=== PATIENT | female | born 1960 | race Caucasian/White ===

== ENCOUNTER 2019-07-23 08:43 | Observation (INO) | payer BC ==
[~2019-07-23] VITALS: Ht 152.4 cm; Wt 49.9 kg
[2019-07-23 03:15] VITALS: BP 109/54
[~2019-07-23 08:43] MED LIST: CELE100C PO; FLUO20CA16 PO; PANT40TA77 PO; ROPI1TAB PO
[2019-07-23] MEDS ORDERED: GLUCAGON,HUMAN RECOMBINANT 1 MG/ML VIAL. IV ONE (09:15)
[2019-07-23] MEDS ORDERED: ONDANSETRON PF 4 MG/2 ML VIAL. IV ONE (09:15)
[2019-07-23 09:42] LABS: BASO % 1 % (0-3); EOS # 0.2 x10^3/uL (0.0-0.7); EOS % 3 % (0-3); HEMATOCRIT 40.4 % (36.0-47.0); HEMOGLOBIN 13.9 g/dL (12.0-15.5); LYMPH # 1.5 x10^3/uL (1.0-4.8); LYMPH % 25 % (24-48); MEAN CORPUSCULAR HEMOGLOBIN 32 pg (25-35); MEAN CORPUSCULAR HGB CONC 35 g/dL (31-37); MEAN CORPUSCULAR VOLUME 93 fL (79-100); MONO # 0.6 x10^3/uL (0.0-1.1); MONO % 9 % (0-9); NEUT # 3.8 x10^3/uL (1.8-7.7); NEUT % 62 % (31-73); PLATELET COUNT 338 x10^3/uL (140-400); RED BLOOD COUNT 4.36 x10^6/uL (3.50-5.40); RED CELL DISTRIBUTION WIDTH 14.1 % (11.5-14.5); WHITE BLOOD COUNT 6.2 x10^3/uL (4.0-11.0)
[2019-07-23 09:48] LABS: CALCIUM 9.9 mg/dL (8.5-10.1); CREATININE 0.9 mg/dL (0.6-1.0); GFR 64.3
[2019-07-23 09:51] LABS: ALBUMIN 4.4 g/dL (3.4-5.0); ALBUMIN/GLOBULIN RATIO 1.3 (1.0-1.7); TOTAL BILIRUBIN 0.7 mg/dL (0.2-1.0); TOTAL PROTEIN 7.8 g/dL (6.4-8.2)
--- NOTE | 2019-07-23 11:37 | PDOC2 ---
GI CONSULT Reason For Consult: possible food bolus HPI: HPI: 58 y/o female - d/w ER physician and asked to see in ER. In usual state of health until yesterday at 5:00 p.m. when a piece of pot roast got stuck in her throat. Eventually coughed up some pieces of pot roast but still unable to take any PO. Says she "feels the stricture" in upper throat and midchest/epigastrium. Given glucagon and Ativan in ER and able to hold water down for 20 min but feels nauseated and feels water "sitting" in epigastrium. H/o food bolus and esophageal stricture - had EGD w/ Dr. Guidry in 2016. Cannot view procedure report but pathology report indicates esophageal stricture (biopsy c/w reflux) and antral ulcer (negative for H. pylori). No dysphagia problems since that time. Occasional heartburn - takes Zantac once weekly. No hematemesis. No abd pain, diarrhea, constipation, hematochezia, melena, or weight loss. No GB, liver, or pancreas history. Had a colonoscopy several years ago that was reportedly normal. Takes Naproxen PRN. PMH: PMH: RLS, arthritis , wrist surgery, neck surgery FH: Family History: Cancer (father - liver) Social History: Smoke: No ALCOHOL: none Drugs: None ROS: GEN: Denies fevers, chills, sweats HEENT: Denies blurred vision, sore throat CV: Denies chest pain RESP: Denies shortness of air, cough GI: Per HPI : Denies hematuria, dysuria ENDO: Denies weight changes NEURO: Denies confusion, dizziness MSK: Denies weakness, joint pain/swelling SKIN: Denies jaundice, pruritus Vitals: Vitals: Vital Signs Date Time Temp Pulse Resp B/P (MAP) Pulse Ox O2 Delivery O2 Flow Rate FiO2 07/23/19 10:25 59 16 116/62 (80) 96 Room Air 07/23/19 09:04 98.1 98.1 Labs: Labs: Laboratory Tests Test 07/23/19 09:24 White Blood Count 6.2 x10^3/uL (4.0-11.0) Red Blood Count 4.36 x10^6/uL (3.50-5.40) Hemoglobin 13.9 g/dL (12.0-15.5) Hematocrit 40.4 % (36.0-47.0) Mean Corpuscular Volume 93 fL (79-100) Mean Corpuscular Hemoglobin 32 pg (25-35) Mean Corpuscular Hemoglobin Concent 35 g/dL (31-37) Red Cell Distribution Width 14.1 % (11.5-14.5) Platelet Count 338 x10^3/uL (140-400) Neutrophils (%) (Auto) 62 % (31-73) Lymphocytes (%) (Auto) 25 % (24-48) Monocytes (%) (Auto) 9 % (0-9) Eosinophils (%) (Auto) 3 % (0-3) Basophils (%) (Auto) 1 % (0-3) Neutrophils # (Auto) 3.8 x10^3/uL (1.8-7.7) Lymphocytes # (Auto) 1.5 x10^3/uL (1.0-4.8) Monocytes # (Auto) 0.6 x10^3/uL (0.0-1.1) Eosinophils # (Auto) 0.2 x10^3/uL (0.0-0.7) Basophils # (Auto) 0.0 x10^3/uL (0.0-0.2) Sodium Level 143 mmol/L (136-145) Potassium Level 4.0 mmol/L (3.5-5.1) Chloride Level 105 mmol/L (98-107) Carbon Dioxide Level 30 mmol/L (21-32) Anion Gap 8 (6-14) Blood Urea Nitrogen 23 mg/dL (7-20) Creatinine 0.9 mg/dL (0.6-1.0) Estimated GFR (Cockcroft-Gault) 64.3 BUN/Creatinine Ratio 26 (6-20) Glucose Level 89 mg/dL (70-99) Calcium Level 9.9 mg/dL (8.5-10.1) Total Bilirubin 0.7 mg/dL (0.2-1.0) Aspartate Amino Transf (AST/SGOT) 23 U/L (15-37) Alanine Aminotransferase (ALT/SGPT) 20 U/L (14-59) Alkaline Phosphatase 133 U/L (46-116) Total Protein 7.8 g/dL (6.4-8.2) Albumin 4.4 g/dL (3.4-5.0) Albumin/Globulin Ratio 1.3 (1.0-1.7) Allergies: Coded Allergies: No Known Drug Allergies (Unverified , 12/30/15) Medications: Current Medications Medications (Trade) Dose Ordered Sig/Asya Route PRN Reason Start Time Stop Time Status Last Admin Dose Admin Ondansetron HCl (Zofran) 4 mg 1X ONCE IV 07/23/19 09:15 07/23/19 09:16 DC 07/23/19 09:33 Lorazepam (Ativan Inj) 0.5 mg 1X ONCE IV 07/23/19 09:15 07/23/19 09:16 DC 07/23/19 09:33 Glucagon (Glucagen) 1 mg 1X ONCE IV 07/23/19 09:15 07/23/19 09:16 DC 07/23/19 09:33 PE: GEN: NAD - emesis basin and Ziploc baggie w/ saliva HEENT: Atraumatic, PERRL LUNGS: CTAB HEART: RRR ABD: NABS, S/ND/NT EXTREMITY: No edema SKIN: No rashes, no jaundice NEURO/PSYCH: A & O �3 A/P: A/P: Possible food impaction H/o GERD, esophageal stricture, gastric ulcer CRC screen - UTD NSAID use -- D/w ER physician and Dr. Swanson - plan for EGD this afternoon. Would probably benefit from daily PPI. ESTER PACHECO Jul 23, 2019 11:37
[2019-07-23] MEDS ORDERED: PANTOPRAZOLE IV PUSH 40 MG VIAL. IVP ONE (11:45)
[2019-07-23] MEDS ORDERED: IV NORMAL SALINE 1000ML BAG 1,000 ML IV SCH (12:03)
[2019-07-23] MEDS ORDERED: ONDANSETRON PF 4 MG/2 ML VIAL. IV PRN ×2 (12:15→13:15)
--- NOTE | 2019-07-23 14:04 | PDOC1 ---
History and Physical Date of Admission Date of Admission DATE: 07/23/19 TIME: 14:01 Identification/Chief Complaint Chief Complaint food impaction Source Source: Caregiver, Chart review, Patient History of Present Illness History of Present Illness 58-year-old white female, food impaction with pot roast few days ago, worse today hence came to the ER. Planned for EGD with removal of the food by GI later this afternoon. Has been nothing by mouth, bucket at bedside. Previous episodes in the past Dr. Krista Guidry GI. Please refer to GI note for full details Fairly comfortable at ER, seen there, consents to procedure Past Medical History Cardiovascular: No pertinent hx Pulmonary: No pertinent hx CENTRAL NERVOUS SYSTEM: Other GI: GERD, Other (food impaction in past) Heme/Onc: No pertinent hx Hepatobiliary: No pertinent hx Psych: No pertinent hx, Addictions Rheumatologic: No pertinent hx Infectious disease: No pertinent hx Renal/: No pertinent hx Endocrine: No pertinent hx Past Surgical History Past Surgical History: , Other Family History Family History: No Significant, Other Social History Smoke: No ALCOHOL: none Drugs: None Current Medications Current Medications Current Medications Ondansetron HCl (Zofran) 4 mg 1X ONCE IV Last administered on 07/23/19at 09:33; Start 07/23/19 at 09:15; Stop 07/23/19 at 09:16; Status DC Lorazepam (Ativan Inj) 0.5 mg 1X ONCE IV Last administered on 07/23/19at 09:33; Start 07/23/19 at 09:15; Stop 07/23/19 at 09:16; Status DC Glucagon (Glucagen) 1 mg 1X ONCE IV Last administered on 07/23/19at 09:33; Start 07/23/19 at 09:15; Stop 07/23/19 at 09:16; Status DC Pantoprazole Sodium (PROTONIX VIAL for IV PUSH) 40 mg 1X ONCE IVP Last administered on 07/23/19at 12:30; Start 07/23/19 at 11:45; Stop 07/23/19 at 11:47; Status DC Ondansetron HCl (Zofran) 4 mg PRN Q8HRS PRN IV NAUSEA/VOMITING; Start 07/23/19 at 12:15; Stop 07/23/19 at 13:12; Status DC Sodium Chloride 1,000 ml @ 100 mls/hr Q10H IV Last administered on 07/23/19at 12 :30; Start 07/23/19 at 12:03; Stop 07/24/19 at 12:02 Ondansetron HCl (Zofran) 4 mg PRN Q6HRS PRN IV NAUSEA/VOMITING; Start 07/23/19 at 13:15 Active Scripts Active Pantoprazole Sodium 40 Mg Tablet. 1 Tab PO DAILY Reported Requip (Ropinirole Hcl) 1 Mg Tablet 0.5 Tab PO QHS Allergies Allergies: Coded Allergies: No Known Drug Allergies (Unverified , 12/30/15) ROS Review of System As per history of present illness, the rest of ROS 14 point negative Physical Exam General: Alert, Oriented X3, Cooperative, No acute distress HEENT: Atraumatic, PERRLA, EOMI Lungs: Clear to auscultation, Normal air movement Heart: S1S2, RRR, no thrills, no rubs, no gallops, no murmurs, no jug vein distention Cardiovascular: S1, S2 Breasts: Normal, Rt breast nml w/o mass, Lt breast nml w/o mass, Nipples normal Abdomen: Normal bowel sounds, Soft, No tenderness, No hepatosplenomegaly, No masses PELVIC: Nml ext genitalia Extremities: No clubbing, No cyanosis, No edema, Normal pulses, No tenderness/swelling Skin: No rashes, No breakdown, No significant lesion Neuro: Normal gait, Normal speech, Strength at 5/5 X4 ext, Normal tone, Sensation intact, Cranial nerves 3-12 NL, Reflexes 2+ Psych/Mental Status: Mental status NL, Mood NL Vitals Vitals Vital Signs Date Time Temp Pulse Resp B/P (MAP) Pulse Ox O2 Delivery O2 Flow Rate FiO2 07/23/19 12:55 55 16 131/63 (85) 97 Room Air 07/23/19 09:04 98.1 98.1 Labs Labs Laboratory Tests Test 07/23/19 09:24 White Blood Count 6.2 x10^3/uL (4.0-11.0) Red Blood Count 4.36 x10^6/uL (3.50-5.40) Hemoglobin 13.9 g/dL (12.0-15.5) Hematocrit 40.4 % (36.0-47.0) Mean Corpuscular Volume 93 fL (79-100) Mean Corpuscular Hemoglobin 32 pg (25-35) Mean Corpuscular Hemoglobin Concent 35 g/dL (31-37) Red Cell Distribution Width 14.1 % (11.5-14.5) Platelet Count 338 x10^3/uL (140-400) Neutrophils (%) (Auto) 62 % (31-73) Lymphocytes (%) (Auto) 25 % (24-48) Monocytes (%) (Auto) 9 % (0-9) Eosinophils (%) (Auto) 3 % (0-3) Basophils (%) (Auto) 1 % (0-3) Neutrophils # (Auto) 3.8 x10^3/uL (1.8-7.7) Lymphocytes # (Auto) 1.5 x10^3/uL (1.0-4.8) Monocytes # (Auto) 0.6 x10^3/uL (0.0-1.1) Eosinophils # (Auto) 0.2 x10^3/uL (0.0-0.7) Basophils # (Auto) 0.0 x10^3/uL (0.0-0.2) Sodium Level 143 mmol/L (136-145) Potassium Level 4.0 mmol/L (3.5-5.1) Chloride Level 105 mmol/L (98-107) Carbon Dioxide Level 30 mmol/L (21-32) Anion Gap 8 (6-14) Blood Urea Nitrogen 23 mg/dL (7-20) Creatinine 0.9 mg/dL (0.6-1.0) Estimated GFR (Cockcroft-Gault) 64.3 BUN/Creatinine Ratio 26 (6-20) Glucose Level 89 mg/dL (70-99) Calcium Level 9.9 mg/dL (8.5-10.1) Total Bilirubin 0.7 mg/dL (0.2-1.0) Aspartate Amino Transf (AST/SGOT) 23 U/L (15-37) Alanine Aminotransferase (ALT/SGPT) 20 U/L (14-59) Alkaline Phosphatase 133 U/L (46-116) Total Protein 7.8 g/dL (6.4-8.2) Albumin 4.4 g/dL (3.4-5.0) Albumin/Globulin Ratio 1.3 (1.0-1.7) Laboratory Tests Test 07/23/19 09:24 White Blood Count 6.2 x10^3/uL (4.0-11.0) Red Blood Count 4.36 x10^6/uL (3.50-5.40) Hemoglobin 13.9 g/dL (12.0-15.5) Hematocrit 40.4 % (36.0-47.0) Mean Corpuscular Volume 93 fL (79-100) Mean Corpuscular Hemoglobin 32 pg (25-35) Mean Corpuscular Hemoglobin Concent 35 g/dL (31-37) Red Cell Distribution Width 14.1 % (11.5-14.5) Platelet Count 338 x10^3/uL (140-400) Neutrophils (%) (Auto) 62 % (31-73) Lymphocytes (%) (Auto) 25 % (24-48) Monocytes (%) (Auto) 9 % (0-9) Eosinophils (%) (Auto) 3 % (0-3) Basophils (%) (Auto) 1 % (0-3) Neutrophils # (Auto) 3.8 x10^3/uL (1.8-7.7) Lymphocytes # (Auto) 1.5 x10^3/uL (1.0-4.8) Monocytes # (Auto) 0.6 x10^3/uL (0.0-1.1) Eosinophils # (Auto) 0.2 x10^3/uL (0.0-0.7) Basophils # (Auto) 0.0 x10^3/uL (0.0-0.2) Sodium Level 143 mmol/L (136-145) Potassium Level 4.0 mmol/L (3.5-5.1) Chloride Level 105 mmol/L (98-107) Carbon Dioxide Level 30 mmol/L (21-32) Anion Gap 8 (6-14) Blood Urea Nitrogen 23 mg/dL (7-20) Creatinine 0.9 mg/dL (0.6-1.0) Estimated GFR (Cockcroft-Gault) 64.3 BUN/Creatinine Ratio 26 (6-20) Glucose Level 89 mg/dL (70-99) Calcium Level 9.9 mg/dL (8.5-10.1) Total Bilirubin 0.7 mg/dL (0.2-1.0) Aspartate Amino Transf (AST/SGOT) 23 U/L (15-37) Alanine Aminotransferase (ALT/SGPT) 20 U/L (14-59) Alkaline Phosphatase 133 U/L (46-116) Total Protein 7.8 g/dL (6.4-8.2) Albumin 4.4 g/dL (3.4-5.0) Albumin/Globulin Ratio 1.3 (1.0-1.7) VTE Prophylaxis Ordered VTE Prophylaxis Devices: Yes VTE Pharmacological Prophylaxi: Yes Assessment/Plan Assessment/Plan Food impaction, pot roast OA, GERD-chronic stable Plan nothing by mouth, EGD later with removal of impacted food GABY TIM MD Jul 23, 2019 14:04
--- NOTE | 2019-07-23 14:25 | PHYS DOC ---
Past Medical History Past Medical History: Arthritis, Other Past Surgical History: , Tubal ligation Additional Past Surgical Histo: NECK FUSION 2008 Alcohol Use: Occasionally Drug Use: None Adult General Chief Complaint Chief Complaint: DIFFICULTY SWALLOWING HPI HPI Patient is a 58 year old female presents with nausea and vomiting and sensation of food being stuck in her esophagus. She has a history of an esophageal stricture back in 2016 she had pot roast last night she ate a piece she tried to she thinks she got most of it back up it since then she has had significant chest pressure every time she drinks some water and then the walker will come right back up. This is been going on for 12-18 hours. No abdominal pain Review of Systems Review of Systems Constitutional: Denies fever or chills [] Eyes: Denies change in visual acuity, redness, or eye pain [] HENT: Denies nasal congestion or sore throat [] Respiratory: Denies cough or shortness of breath [] Integument: Denies rash or skin lesions [] Neurologic: Denies headache, focal weakness or sensory changes [] Endocrine: Denies polyuria or polydipsia [] All other systems were reviewed and found to be within normal limits, except as documented in this note. Current Medications Current Medications Current Medications Medications (Trade) Dose Ordered Sig/Asya Start Time Stop Time Status Last Admin Dose Admin Glucagon (Glucagen) 1 mg 1X ONCE 07/23/19 09:15 07/23/19 09:16 DC 07/23/19 09:33 1 MG Lorazepam (Ativan Inj) 0.5 mg 1X ONCE 07/23/19 09:15 07/23/19 09:16 DC 07/23/19 09:33 0.5 MG Ondansetron HCl (Zofran) 4 mg 1X ONCE 07/23/19 09:15 07/23/19 09:16 DC 07/23/19 09:33 4 MG Pantoprazole Sodium (PROTONIX VIAL for IV PUSH) 40 mg 1X ONCE 07/23/19 11:45 07/23/19 11:47 DC 07/23/19 12:30 40 MG Allergies Allergies Allergies Coded Allergies Type Severity Reaction Last Updated Verified No Known Drug Allergies 12/30/15 No Physical Exam Physical Exam Constitutional: Well developed, well nourished, no acute distress, non-toxic ap pearance. [] HENT: Normocephalic, atraumatic, bilateral external ears normal, oropharynx moist, no oral exudates, nose normal. [] Eyes: PERRLA, EOMI, conjunctiva normal, no discharge. [] Neck: Normal range of motion, no tenderness, supple, no stridor. [] Cardiovascular:Heart rate regular rhythm, no murmur [] Lungs & Thorax: Bilateral breath sounds clear to auscultation [] Abdomen: Bowel sounds normal, soft, no tenderness, no masses, no pulsatile masses. [] Skin: Warm, dry, no erythema, no rash. [] Back: No tenderness, no CVA tenderness. [] Extremities: No tenderness, no cyanosis, no clubbing, ROM intact, no edema. [] Neurologic: Alert and oriented X 3, normal motor function, normal sensory function, no focal deficits noted. [] Psychologic: Affect normal, judgement normal, mood normal. [] Current Patient Data Vital Signs Vital Signs Date Time Temp Pulse Resp B/P (MAP) Pulse Ox O2 Delivery O2 Flow Rate FiO2 07/23/19 11:25 55 16 126/63 (84) 98 Room Air 07/23/19 09:04 98.1 98.1 Lab Values Laboratory Tests Test 07/23/19 09:24 White Blood Count 6.2 x10^3/uL (4.0-11.0) Red Blood Count 4.36 x10^6/uL (3.50-5.40) Hemoglobin 13.9 g/dL (12.0-15.5) Hematocrit 40.4 % (36.0-47.0) Mean Corpuscular Volume 93 fL (79-100) Mean Corpuscular Hemoglobin 32 pg (25-35) Mean Corpuscular Hemoglobin Concent 35 g/dL (31-37) Red Cell Distribution Width 14.1 % (11.5-14.5) Platelet Count 338 x10^3/uL (140-400) Neutrophils (%) (Auto) 62 % (31-73) Lymphocytes (%) (Auto) 25 % (24-48) Monocytes (%) (Auto) 9 % (0-9) Eosinophils (%) (Auto) 3 % (0-3) Basophils (%) (Auto) 1 % (0-3) Neutrophils # (Auto) 3.8 x10^3/uL (1.8-7.7) Lymphocytes # (Auto) 1.5 x10^3/uL (1.0-4.8) Monocytes # (Auto) 0.6 x10^3/uL (0.0-1.1) Eosinophils # (Auto) 0.2 x10^3/uL (0.0-0.7) Basophils # (Auto) 0.0 x10^3/uL (0.0-0.2) Sodium Level 143 mmol/L (136-145) Potassium Level 4.0 mmol/L (3.5-5.1) Chloride Level 105 mmol/L (98-107) Carbon Dioxide Level 30 mmol/L (21-32) Anion Gap 8 (6-14) Blood Urea Nitrogen 23 mg/dL (7-20) H Creatinine 0.9 mg/dL (0.6-1.0) Estimated GFR (Cockcroft-Gault) 64.3 BUN/Creatinine Ratio 26 (6-20) H Glucose Level 89 mg/dL (70-99) Calcium Level 9.9 mg/dL (8.5-10.1) Total Bilirubin 0.7 mg/dL (0.2-1.0) Aspartate Amino Transferase (AST) 23 U/L (15-37) Alanine Aminotransferase (ALT) 20 U/L (14-59) Alkaline Phosphatase 133 U/L (46-116) H Total Protein 7.8 g/dL (6.4-8.2) Albumin 4.4 g/dL (3.4-5.0) Albumin/Globulin Ratio 1.3 (1.0-1.7) Laboratory Tests 07/23/19 09:24 Laboratory Tests 07/23/19 09:24 EKG EKG [] Radiology/Procedures Radiology/Procedures [] Course & Med Decision Making Course & Med Decision Making Pertinent Labs and Imaging studies reviewed. (See chart for details) []We gave glucagon and Ativan and Zofran she felt a little better but then was still unable to really drink fluids without feeling a lot of pressure and spitting it back up. I spoke with [facility] for GI who came to see the patient plan to scope later MIP several hours until Dr. Meneses is able. Could admit for observation it is up to us she says. I spoke with the charge nurse plan to admit for OBS, D/W TERMULO Dragon Disclaimer Cornell Disclaimer This electronic medical record was generated, in whole or in part, using a voice recognition dictation system. Departure Departure Impression: Primary Impression: Food impaction of esophagus Disposition: ADMITTED INPATIENT Condition: STABLE Referrals: JUSTIN PHELPS MD (PCP) VAN MAI MD Jul 23, 2019 14:25
[2019-07-23] MEDS ORDERED: fentaNYL PF VIAL 100 MCG/2 ML VIAL ONE (16:59)
[2019-07-23] MEDS ORDERED: MIDAZOLAM HCL/PF 5 MG/5 ML VIAL. ONE (16:59)
[2019-07-23] MEDS ORDERED: MIDAZOLAM HCL/PF 5 MG/5 ML VIAL. IV ONE (17:03)
[2019-07-23] MEDS ORDERED: fentaNYL PF VIAL 100 MCG/2 ML VIAL IV ONE (17:05)
--- NOTE | 2019-07-23 17:14 | PDOC4 ---
Operative Note Operative Note EGD with dilation Meds Versed 1 mg IV Fentanyl 50 mcg IV Pre-op dx dysphagia/meat impaction Post-op dx Lilly ring s/p 54 FR Micah dilation Plan advance diet and release home JERROD OBRIEN MD Jul 23, 2019 17:14
[2019-07-23 17:50] VITALS: BP 132/78
--- NOTE | 2019-07-23 17:51 | PDOC4 ---
Operative Note Operative Note EGD with biopsies Meds Versed 2 mg IV Fentanyl 75 mcg IV Pre-op dx Acute blood loss anemia/hx neuroendocrine duodenal tumor Post-op dx multiple gastric ulcers body/antrum chronic with cratered bases s/p bx Imp Anemia-secondary to r/o malignancy-lymphoma versus recurrent neuroendocrine cancer Plan PPI therapy serial CBCs await path advance diet JERROD OBRIEN MD Jul 23, 2019 17:51
== END 2019-07-23 19:09 | disposition home or self-care (01) ==
LOC: ER 08:43 → ED HOLD 11:48 → 4 NORTH 15:29
PROVIDERS: ADMIT Internal Medicine; ATTEND Internal Medicine
DX: T18.128A Food in esophagus causing other injury, initial encounter (principal); K21.9 Gastro-esophageal reflux disease without esophagitis; M19.90 Unspecified osteoarthritis, unspecified site; R07.89 Other chest pain; Z98.1 Arthrodesis status; D62 Acute posthemorrhagic anemia
CPT/HCPCS: 36415; 43450; 80053; 85025; 96374; 96375; 99284; C9113; G0378; J1610; J2060; J2250; J2405; J3010; J7030; G0379

== ENCOUNTER → 2020-10-13 | Outpatient (CLI) | payer BC, OTHER ==
--- NOTE | 2020-10-13 16:12 | KCIC ---
PROCEDURE: FOOT RIGHT 3V STUDY DATE: 10/13/2020 CLINICAL INDICATION / HISTORY: Reason: Right foot pain since April. No known injury. / Spl. Instructions: / History: . TECHNIQUE: AP, lateral and oblique standing views of the right foot. COMPARISON: None FINDINGS: No fracture or dislocation is identified. The bone density is normal. The joint space widths are maintained, and there are no erosions to suggest an inflammatory arthropathy. No soft tissue abnormality is seen. IMPRESSION: No acute osseous abnormality. Electronically signed by: Claudia Stanley MD (10/13/2020 4:10 PM) [id number]
== END ==
LOC: KCIC 12:53
PROVIDERS: ATTEND Nurse Practitioner Gerontology
DX: M79.671 Pain in right foot (principal)
CPT/HCPCS: 73630

== ENCOUNTER → 2021-10-19 | Outpatient (CLI) | payer BC, OTHER ==
--- NOTE | 2021-10-19 13:29 | KCIC ---
MR LUMBAR SPINE WO [id number] History: Reason: BACK PAIN / Spl. Instructions: Pain down left leg to knee. Pt is a lifelong horse ri chalino. / History: Low back pain, chronic. Worsening pain down entire right leg. Technique: Multiplanar, multi sequential MR imaging was performed of the lumbar spine. Comparison: None Findings: Normal vertebral body height and alignment. No fracture. Conus terminates at the normal location. No evidence of nerve root clumping. L1-L2: Small disc bulge. No canal narrowing. No neuroforaminal narrowing. L2-L3: Minimal disc bulge. Right foraminal disc protrusion. No canal narrowing. Mild right neurofora valdo narrowing. L3-L4: Disc bulge. Mild facet arthropathy. No canal or neuroforaminal narrowing. L4-L5: Small disc bulge. Mild facet arthropathy. No canal narrowing. Mild bilateral neuroforaminal n arrowing. L5-S1: Minimal disc bulge. Moderate facet arthropathy. No canal narrowing. Mild left neuroforaminal narrowing. Impression: 1. Mild lumbar spondylosis. 2. Mild neuroforaminal narrowing, as described. Electronically signed by: Simon Mann DO (10/19/2021 1:27 PM) [id number]
== END ==
LOC: KCIC MRI 09:17
PROVIDERS: ATTEND Family Medicine
DX: M47.816 Spondylosis without myelopathy or radiculopathy, lumbar region (principal); M51.27 Other intervertebral disc displacement, lumbosacral region; M48.8X7 Other specified spondylopathies, lumbosacral region; M48.07 Spinal stenosis, lumbosacral region
CPT/HCPCS: 72148